=== PATIENT | male | born 1980 | race African-American/Black ===

== ENCOUNTER → 2023-04-22 | Outpatient (CLI) | payer OTHER ==
[2023-04-23 08:06] LABS: HSV TYPE 1 AB, IGG 48.7 index (0.00-0.90)
== END | disposition home or self-care (01) ==
LOC: MSR 09:06
PROVIDERS: ATTEND Chiropractor
DX: M50.322 Other cervical disc degeneration at C5-C6 level (principal); B00.9 Herpesviral infection, unspecified; M48.04 Spinal stenosis, thoracic region; M47.814 Spondylosis without myelopathy or radiculopathy, thoracic region; M19.031 Primary osteoarthritis, right wrist; M48.02 Spinal stenosis, cervical region; M25.78 Osteophyte, vertebrae; M77.32 Calcaneal spur, left foot
CPT/HCPCS: 72040; 72100; 86695; 86696